=== PATIENT | male | born 1955 | race Caucasian/White ===

== ENCOUNTER 2025-09-25 14:48 | Emergency (ER) | payer OTHER, SELFPAY ==
[2025-09-25 14:54] VITALS: BP 168/107
[2025-09-25 15:35] VITALS: BMI 24.2
--- NOTE | 2025-09-25 16:27 | ED.GENMED ---
History of Present Illness
General
Chief Complaint: Musculo-Skeletal Complaint
Source: patient
Time Seen by Provider: 09/25/25 15:40
History of Present Illness
History of Present Illness:
69-year-old male with past medical history of hypertension, CAD, chronic back/neck pain, anxiety and depression presenting to the ER for an exacerbation of his chronic pain. History was very erratic and difficult to obtain, patient initially
stating that he saw his pain management provider earlier in the week but that they refused to give him any more of his pain medication, noting he takes 20 mg of long-acting oxycodone, was recently in the hospital for pain related issue and was given
a prescription for short acting oxycodone, ran out of his medications and then the pharmacy would not fill his medications due to it being too soon for him to fill the medications. When questioned whether the pain management doctor would not
provide him with a new prescription for the pharmacy would not fill the prescription because it was too soon patient's story did change so overall unclear as to if patient does have a prescription or if the pharmacy would not fill it. I also
questioned the patient about the pain medication received from the hospital as his discharge papers stated he was given 5 mg tablets of immediate release oxycodone but his pain management provider prescribed him with 20 mg of long-acting oxycodone
and why he would have run out of these medicines too soon and if he was given an additional prescription. Patient notes no new symptoms or changes to his symptoms today, no fevers, no new trauma.
Past History
Past History
ED Past Medical History: CAD, HTN, Hypercholesterolemia, [place], Psychiatric (Depression and anxiety), Other (Likely COPD, chronic neck and back pain, cervical DJD, opioid dependent, follows with pain management), Other (Chronic anal
fistulas/hidradenitis suppurativa) and Other (Jaw fracture)
ED Past Surgical History: Bowel resection (Colostomy 2018), Cardiac (questionable stents) and Orthopedic (Cervical disc disease, back surgery, )
Social History
Tobacco: Smoker
Alcohol: None
Drug: None
Personal:
Living: alone
Employment: Disabled
Family History
Family History: Unable to obtain
Review of Systems
Review of Systems
All Other Systems: ROS reviewed and negative except as documented in HPI and ROS
Phy Exam
Physical Exam
Physical Exam:
GENERAL: Alert , intermittently moaning, unkempt, appears older than stated age, chronic appearing soft collar in place
EYE: conjunctiva clear
Head: Normocephalic atraumatic
NECK: Supple
ENT: mmm.
LUNGS: no acute respiratory distress
NEUROLOGICAL: Alert and oriented
SKIN: Warm and dry, skin intact.
MUSCULOSKELETAL: well perfused.
PSYCH: Normal and appropriate interaction.
Scores
Heart Failure Risk
Heart Failure Risk Score: Not Applicable
Heart Score for Chest Pain Patients
STEMI patient?: Not applicable
Withdrawal Assessment of Alcohol
Withdrawal Assessment Completed?: Not applicable
Course
Orders/Labs/Results
Orders:
Orders
09/25/25 16:27
Oxycodone [Roxicodone] 10 mg PO NOW STA
Vital Signs
Initial and Last Documented VS:
Initial Vital Signs
Temp Pulse Resp BP Pulse Ox
98.0 F 80 16 168/107 95
09/25/25 14:54 09/25/25 14:54 09/25/25 14:54 09/25/25 14:54 09/25/25 14:54
Last Documented Vital Signs
Temp Pulse Resp BP Pulse Ox
98.0 F 80 16 168/107 95
09/25/25 14:54 09/25/25 14:54 09/25/25 14:54 09/25/25 14:54 09/25/25 16:28
MDM/Problems Addressed
Differential Diagnosis Includes:
Acute on chronic pain
Chronic radiculopathy
Infectious etiology considered however patient is without fevers
Medication misuse
MDM/Problems Addressed:
69-year-old male presenting to the ER for evaluation of chronic pain to his neck. Patient's history is very erratic and difficult to obtain. When I reviewed patient's discharge papers it did state he was on 5 mg immediate release oxycodone, can
take 2 tablets every 6 hours as needed for pain in addition to the patient's reported 20 mg of long-acting oxycodone his pain management provider provides him with. Given patient's presentation with what appears to be more of a chronic condition I
explained to the patient that we would not be able to provide him with any new prescriptions as he would need to get this through his pain management provider as well as the hospitals policy is that we do not refill chronic pain medication for
chronic pain related complaints. I did offer to treat him here with the 10 mg of immediate release oxycodone that he was discharged with from the separate hospital, patient requesting intramuscular pain medicine instead but I refused this option as
patient's story is very erratic and he was not very forthcoming with his history and I do have concern for opiate misuse. At this time patient is stable for discharge back home
Chronic conditions affecting care: Other (Chronic pain)
Acute Exacerbation and/or Progression of Chronic Illness: Other (Acute on chronic pain)
*Pulse Oximetry
SaO2: 95
Oxygen Mode of Delivery: Room air
Patient hypoxic: no
*Critical Care Note
Total Time (30-74mins, 75-104mins- exclusive of procedures): Not Applicable
ED Attending Note
-
Portions of this chart may have been created with voice recognition software.� Occasional wrong word or��sound alike� substitutions may have occurred due to the inherent limitations of voice recognition software.
Discharge Plan
Departure
Patient Disposition: Home (Routine Discharge)
Date of Disposition: 09/25/25
Time of Disposition: 16:27
Patient with high blood pressure during this ER visit?: Yes
Discharge Problem:
Chronic pain syndrome
Instructions: Chronic pain
Prescriptions:
No Action
atorvastatin [Lipitor] 80 mg Tablet
80 mg PO HS
lansoprazole [Prevacid] 30 mg Capsule,Delayed Release(Dr/Ec)
30 mg PO BID
Rx Instructions:
BRAND NECESSARY
metoprolol succinate 25 mg Tablet Extended Release 24 Hr
25 mg PO DAILY
aspirin 81 mg Tablet,Chewable
81 mg PO DAILY
bupropion HCl [Wellbutrin SR] 150 mg tablet sustained-release 12 hr
150 mg PO BID Qty: 60 0RF
Patient Comments:
11/02/22--patient said brand name only
pantoprazole [Protonix] 40 mg tablet,delayed release (DR/EC)
40 mg PO BID 30 Days Qty: 60 0RF
clopidogrel 75 mg Tablet
75 mg PO DAILY
escitalopram oxalate [Lexapro] 20 mg Tablet
20 mg PO HS
Rx Instructions:
BRAND NECESSARY
lidocaine 4 % Adhesive Patch,Medicated
1 patch topical DAILY Qty: 10 0RF
Rx Instructions:
apply to lower back
tizanidine 2 mg Capsule
2 mg PO Q8H PRN (Reason: muscle relaxer)
sucralfate [Carafate] 1 gram tablet
1 g PO BID
oxycodone 15 mg Tablet
15 mg PO QID Qty: 8 0RF
pregabalin [Lyrica] 50 mg Capsule
50 mg PO Q8H Qty: 6 0RF
Patient Comments:
05/01/2023: last filled 04/15/23, 90 tabs for 30 days from [id number]
Referrals:
UNKNOWN - PT DOES,NOT KNOW [Family Provider]
Interventions
Interventions:
*Risk Screen - Suicide Last Done: 09/25/25 14:59
*General Assessment Last Done: 09/25/25 14:59
*Neglect/Abuse Screening Last Done: 09/25/25 14:59
*ED COVID-19 Vaccine History Last Done: 09/25/25 15:36
*ED Influenza Vaccine History Last Done: 09/25/25 15:36
ED-Musculoskeletal Assessment Last Done: 09/25/25 15:36
Discharge Date and Time
Print Language: [place]
[2025-09-25] MEDS: ROXICODONE 10 MG PO (16:41)
== END 2025-09-25 17:20 | disposition home or self-care (01) ==
LOC: EMR 14:48
PROVIDERS: EMERGENCY PHYSICIAN Student in an Organized Health Care Education/Training Program
DX: M54.2 Cervicalgia (principal); G89.4 Chronic pain syndrome; M54.9 Dorsalgia, unspecified; I10 Essential (primary) hypertension; I25.10 Atherosclerotic heart disease of native coronary artery without angina pectoris; F41.9 Anxiety disorder, unspecified; F32.A Depression, unspecified; M47.812 Spondylosis without myelopathy or radiculopathy, cervical region; E78.00 Pure hypercholesterolemia, unspecified; F17.200 Nicotine dependence, unspecified, uncomplicated; Z79.82 Long term (current) use of aspirin; Z98.0 Intestinal bypass and anastomosis status; Z88.5 Allergy status to narcotic agent; Z88.0 Allergy status to penicillin; Z88.8 Allergy status to other drugs, medicaments and biological substances; Z88.1 Allergy status to other antibiotic agents; Z91.041 Radiographic dye allergy status
CPT/HCPCS: 99283